=== PATIENT | male | born 1935 | race Two or more races ===

== ENCOUNTER → 2016-06-01 | Outpatient (CLI) | payer MEDICARE, MEDICAID ==
[~2016-06-01] MED LIST: AMBIEN5 MG ORAL; ATORVASTATIN CA10 MG ORAL; DICYCLOMINE HCL10 MG PO; GABAPENTIN300 MG ORAL; JALYN 0.5-0.41 EACH PO; LANSOPRAZOLE30 MG ORAL; LINZESS145 MCG PO; LORAZEPAM1 MG ORAL; MELATONIN10 M4 PO; MIRALAX17 G2 ORAL; NEXIUM40 MG ORAL; SERTRALINE HCL25 MG ORAL; SYMBICORT 1601 PUFFS INH; TENORMIN25 MG ORAL
[2016-06-01 14:56] VITALS: BP 125/61
--- NOTE | 2016-06-01 15:34 | GI Progress Note ---
Assessment/Plan Problems: (1) Colonoscopy planned SNOMED: 304426533 (2) Abdominal pain ICD Codes: R10.9 - Unspecified abdominal pain SNOMED: 52029397 (3) Constipation ICD Codes: K59.00 - Constipation SNOMED: 10881885 (4) Gastritis ICD Codes: K29.70 - Gastritis SNOMED: 7283314 Status: stable Status Narrative Seen with Dr. Alcazar. Assessment/Plan recommend patient to have colonoscopy to evaluate colonic polyps >> refused at this time by son, will contact [facility] to schedule at later date - [facility]D & Suprep instructions given and acknowledged by patient family member. rx lorazepam refill Subjective Subjective abdominal pain weight loss down to 170 lbs a few months ago Objective Last 24 Hour Vital Signs Date Time Temp Pulse Resp B/P Pulse Ox O2 Delivery O2 Flow Rate FiO2 06/01/16 14:56 98.2 90 16 125/61 98 General Appearance: no apparent distress, alert Cardiovascular: normal rate Respiratory/Chest: normal breath sounds, no respiratory distress Abdominal Exam: normal bowel sounds, non tender, soft Extremities: normal range of motion Objective s/p EGD/EUS 2013 Chief Complaint: abd pain, wt loss Pre-op Diagnosis: abd pain,WT loss Procedure: EGD/EUS Post-op Diagnosis: gastritis Surgeon: DIANE Flores - Dec 05, 2013 08:57 colon in 2009 Virtual Colon 2 months ago >> negative except 6mm polyp Amanda Jackson N.P. Jun 01, 2016 15:34
== END | disposition home or self-care (01) ==
LOC: PAN 14:36
DX: K29.70 Gastritis, unspecified, without bleeding (principal); K59.00 Constipation, unspecified; R10.9 Unspecified abdominal pain
CPT/HCPCS: 99211